=== PATIENT | male | born 1940 | race Caucasian/White ===

== ENCOUNTER → 2017-07-01 | Outpatient (CLI) | payer MEDICARE | END | disposition home or self-care (01) | LOC: PCVCCLINIC 14:14 | DX: I10 Essential (primary) hypertension (principal); R06.02 Shortness of breath; I63.9 Cerebral infarction, unspecified; R01.1 Cardiac murmur, unspecified; Z87.891 Personal history of nicotine dependence | CPT/HCPCS: 80061; 93005; G0463 ==

== ENCOUNTER → 2017-07-16 | Outpatient (CLI) | payer MEDICARE ==
[~2017-07-16] MED LIST: REGADENOSON 0.4 MG/5 ML DISP.SYRIN. IV
== END | disposition home or self-care (01) ==
LOC: PCVCIMAG 07:39
DX: I65.23 Occlusion and stenosis of bilateral carotid arteries (principal); I63.9 Cerebral infarction, unspecified; I10 Essential (primary) hypertension; R06.02 Shortness of breath; R00.1 Bradycardia, unspecified; I35.1 Nonrheumatic aortic (valve) insufficiency
CPT/HCPCS: 78452; 93017; 93306; 93880; A9500; J2785